=== PATIENT | female | born 1965 ===

== ENCOUNTER 2020-01-18 16:53 | Outpatient (REF) | payer OTHER, SELFPAY ==
[2019-03-09 10:09] LABS: Hepatitis C Ab w Rflx HCV PCR Negative (NEGAT)
== END 2020-01-18 17:13 ==
LOC: NCHCO 16:53
PROVIDERS: Visit Provider Family Medicine
DX: Z11.59 Encounter for screening for other viral diseases (principal)
CPT/HCPCS: 86803